=== PATIENT | male | born 1960 | race Caucasian/White ===

== ENCOUNTER 2020-01-26 16:28 | Emergency (ER) | payer MEDICAID, SELFPAY ==
[2020-01-26] VITALS (7 sets, daily range): BP systolic 124–152; BP diastolic 64–93; PULSE 64–94; RESP 16–22; TEMP 36.3; O2SAT 95–98; BMI 30.4
--- NOTE | 2020-01-26 16:34 | ECG_ITS ---
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 Measurements Intervals [place] Rate: 92 P: 55 [place]: 203 QRS: -12 QRSD: 98 T: 32 QT: 346 QTc: 429 Interpretive Statements SINUS RHYTHM No previous ECG available for comparison Electronically Signed On 01-26-2020 17:41:36 CDT by Lana Duran M.D. [id number] f
--- NOTE | 2020-01-26 16:46 | XRR_ITS ---
PROCEDURE INFORMATION: Exam: XR Chest, 1 View Exam date and time: 01/26/2020 5:12 PM Age: 59 years old Clinical indication: Chest pain; Type not specified TECHNIQUE: Imaging protocol: XR of the chest Views: 1 view. COMPARISON: No relevant prior studies available. FINDINGS: Lungs: Unremarkable. No consolidation. Pleural space: Unremarkable. No pleural effusion. No pneumothorax. Heart/Mediastinum: Unremarkable. No cardiomegaly. Bones/joints: Unremarkable. XR/XR chest 1V portable [id number] IMPRESSION: No acute findings.
[2020-01-26 16:56] LABS: Basophils # 0.1 10^3/uL (0.0-0.1); Basophils % 0.9 %; Eosinophils # 0.2 10^3/uL (0.0-0.8); Eosinophils % 2.5 %; Hematocrit 42.7 % (42.0-52.0); Hemoglobin 14.1 g/dL (11.7-16.6); Lymphocytes # 1.5 10^3/uL (0.8-4.8); Lymphocytes % 18.4 %; Mean Corpuscular Hemoglobin 29.2 pg (28.0-34.0); Mean Corpuscular Volume 88.4 fL (80-94); Mean Platelet Volume 9.1 fL (7.4-10.4); Monocytes # 0.7 10^3/uL (0.2-0.9); Monocytes % 9.1 %; Neutrophils # 5.59 10^3/uL (1.8-7.7); Neutrophils % 68.6 %; Nucleated Red Blood Cells % 0 %; Platelet Count 233 10^3/cmm (130-400); Red Blood Count 4.83 10^6/uL (4.1-5.3); Red Cell Distribution Width 12.7 % (12.1-15.1); White Blood Count 8.1 10^3/uL (4.0-10.0)
[2020-01-26 17:22] LABS: Alanine Aminotransferase 23 U/L (0-41); Albumin Level 4.4 g/dL (3.5-5.2); Alkaline Phosphatase 85 IU/L (40-130); Anion Gap 15.3 (5-19); Aspartate Amino Transferase 19 U/L (0-40); Blood Urea Nitrogen 11 mg/dL (6-20); Calcium 9.6 mg/dL (8.5-10.5); Carbon Dioxide 23 mmol/L (22-29); Chloride 104 mmol/L (98-107); Creatinine Clr Calc Pharmacy 99.0456; Globulin 2.4 g/dL (1.3-4.6); Glucose 120 mg/dL (65-115); Lipase 57 U/L (13-60); Osmolality Calculated 287 mOsm/kg (285-295); Potassium 4.3 mmol/L (3.5-5.1); Sodium 138 mmol/L (136-145); Total Bilirubin 0.3 mg/dL (0.15-1.2); Total Protein 6.8 g/dL (6.6-8.7)
[2020-01-26 17:23] LABS: Troponin(5th) Baseline 7 ng/L (0-15)
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
--- NOTE | 2020-01-26 18:34 | ECG_ITS ---
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 Measurements Intervals [place] Rate: 74 P: 65 [place]: 203 QRS: 112 QRSD: 96 T: 23 QT: 384 QTc: 426 Interpretive Statements SINUS RHYTHM POSSIBLE RIGHT VENTRICULAR HYPERTROPHY [SOME/ALL OF: PROMINENT R IN V1, LATE TRANSITION, RAD, JAYY, SSS] Compared to ECG 01/26/2020 16:31:58 No significant changes Electronically Signed On 01-27-2020 18:37:43 CDT by Lana Duran M.D. [email or web address]/[id number]
[2020-01-26] MEDS: nitroglycerin 1 gm/inch oint Pkt 1 INCH TOPICAL (19:04)
[2020-01-26 19:20] LABS: D Dimer <= 0.27 ug/mIFEU (0-0.59)
== END 2020-01-26 21:57 ==
PROVIDERS: Emergency Provider Emergency Medicine
DX: R07.9 Chest pain, unspecified (principal); Z79.82 Long term (current) use of aspirin
CPT/HCPCS: 12345; 71045; 80053; 83690; 84484; 85025; 85378; 85610; 93005; 99283; 99284

== ENCOUNTER 2020-01-30 17:20 | Observation (INO) | payer MEDICAID, SELFPAY ==
[2020-01-30] VITALS (8 sets, daily range): BP systolic 125–166; BP diastolic 58–91; PULSE 55–93; RESP 18–20; TEMP 36.5–37; O2SAT 96–99; BMI 30.4
[2020-01-30 18:06] LABS: Basophils # 0.1 10^3/uL (0.0-0.1); Basophils % 0.8 %; Eosinophils # 0.2 10^3/uL (0.0-0.8); Eosinophils % 2.1 %; Hematocrit 45.2 % (42.0-52.0); Hemoglobin 15.1 g/dL (11.7-16.6); Lymphocytes # 1.5 10^3/uL (0.8-4.8); Lymphocytes % 21.1 %; Mean Corpuscular HGB Conc 33.4 g/dL (30.0-36.0); Mean Corpuscular Hemoglobin 29.4 pg (28.0-34.0); Mean Corpuscular Volume 88.1 fL (80-94); Mean Platelet Volume 8.9 fL (7.4-10.4); Monocytes # 0.6 10^3/uL (0.2-0.9); Monocytes % 8.3 %; Neutrophils # 4.86 10^3/uL (1.8-7.7); Neutrophils % 67.4 %; Nucleated Red Blood Cells % 0 %; Platelet Count 261 10^3/cmm (130-400); Red Blood Count 5.13 10^6/uL (4.1-5.3); Red Cell Distribution Width 12.6 % (12.1-15.1); White Blood Count 7.2 10^3/uL (4.0-10.0)
[2020-01-30 18:29] LABS: Alanine Aminotransferase 23 U/L (0-41); Albumin Level 4.8 g/dL (3.5-5.2); Alkaline Phosphatase 91 IU/L (40-130); Anion Gap 18.2 (5-19); Aspartate Amino Transferase 22 U/L (0-40); Blood Urea Nitrogen 12 mg/dL (6-20); Calcium 10.2 mg/dL (8.5-10.5); Carbon Dioxide 22 mmol/L (22-29); Chloride 100 mmol/L (98-107); Creatinine Clr Calc Pharmacy 89.1411; Globulin 2.6 g/dL (1.3-4.6); Glucose 162 mg/dL (65-115); Lipase 36 U/L (13-60); Osmolality Calculated 285 mOsm/kg (285-295); Potassium 4.2 mmol/L (3.5-5.1); Sodium 136 mmol/L (136-145); Total Bilirubin 0.4 mg/dL (0.15-1.2); Total Protein 7.4 g/dL (6.6-8.7)
--- NOTE | 2020-01-30 18:54 | CTR_ITS ---
PROCEDURE INFORMATION: Exam: CT Abdomen And Pelvis With Contrast Exam date and time: 01/30/2020 7:10 PM Age: 59 years old Clinical indication: Nausea and vomiting; Abdominal pain; Periumbilical; Prior surgery; Surgery type: Hernia, testicle; Patient HX: Central protruding mass; Additional info: Abdominal pain, fever TECHNIQUE: Imaging protocol: Computed tomography of the abdomen and pelvis with intravenous contrast. Radiation optimization: All CT scans at this facility use at least one of these dose optimization techniques: automated exposure control; mA and/or kV adjustment per patient size (includes targeted exams where dose is matched to clinical indication); or iterative reconstruction. Contrast material: OMNI 300; Contrast volume: 95 ml; Contrast route: INTRAVENOUS (IV); COMPARISON: No relevant prior studies available. RADIATION DOSE METRICS: Total DLP (mGy-cm): 860.56 FINDINGS: Liver: Normal. No mass. Gallbladder and bile ducts: Normal. No calcified stones. No ductal dilation. Pancreas: Normal. No ductal dilation. Spleen: Normal. No splenomegaly. Adrenals: Normal. No mass. Kidneys and ureters: Normal. No hydronephrosis. Stomach and bowel: The 1.9 cm duodenal diverticulum without inflammation. Scattered stool in the colon without obstructive or inflammatory changes. There are a few noninflamed distal colonic diverticula. Appendix: The appendix is normal. Intraperitoneal space: Unremarkable. No free air. No significant fluid collection. Vasculature: Unremarkable. No abdominal aortic aneurysm. Lymph nodes: There are a few borderline enlarged retroperitoneal lymph nodes which are most likely reactive. Urinary bladder: The urinary bladder is enlarged up to 12 cm but without wall thickening or stones. Reproductive: Unremarkable as visualized. Bones/joints: Chronic degenerative disc disease at L5-S1. Mild lower lumbar disc bulges without significant stenosis. Soft tissues: 2.2 cm umbilical hernia consist of fatty tissue only. No inflammation. CT/CT abdomen pelvis w con* [id number] IMPRESSION: 1. No acute abdominopelvic findings. 2. Small fatty umbilical hernia without bowel involvement. 3. Chronic or incidental findings as described. Radiation Dose CTDIVOL = (mGy): DLP = 860.56 (mGy-cm)
--- NOTE | 2020-01-30 18:54 | W.ED.ABDPA2 ---
HPI - Abdominal Pain General: Chief Complaint: Abdominal Pain Stated Complaint: VOMITING BLOOD Time Seen by Provider: 01/30/20 18:46 History of Present Illness: HPI narrative: This patient is a 59-year-old male who presents today with abdominal pain. He said it is his pancreatitis flaring up. He indicates his epigastric area as the source of the pain. He has had pancreatitis several times. He is not sure what the cause of it was. He said they tried to take his gallbladder out once but it was too big. He was seen here few days ago with chest pain. That resolved and then this started about 2 days ago. He has had vomiting blood and black tarry stools for 2 days. MD elicited complaint: abdominal pain Pertinent past history: myocardial infarction and other (Pancreatitis) Onset (ago): day(s) (2) Pain Consistency: constant Location: Epigastric Severity: severe Quality: cramping, stabbing and sharp Radiation: none Migration to: no migration Exacerbating factors: eating and movement Relieving factors: nothing Associated Symptoms: Reports fever(s), hematemesis, melena, nausea and vomiting; Denies chills Review of Systems General: Reports: 10 or more systems reviewed and unremarkable except in HPI and below Const: Reports: fever(s); Denies: chills, fatigue or malaise Eyes: Denies: change in vision ENMT: Denies: odynophagia Card: Denies: chest pain or swelling of feet/ankles Resp: Denies: dyspnea, productive cough or non-productive cough GI: Reports: abdominal pain, nausea, vomiting, hematemesis and melena : Denies: flank pain Musc: Denies: neck pain or back pain Skin/Breast: Denies: rash Neuro: Denies: headache(s), numbness in extremities or weakness in extremities Robin/Lymph: Denies: easy bruising or easy bleeding Physical Exam Const: COMMON NORMALS: patient oriented x3, no limitations and alert GENERAL APPEARANCE: cooperative HENMT: HEAD & SCALP: normal to inspection FACE & SINUS: normal facial exam Eye: GENERAL EYE: appearance normal, both eyes and all related structures Neck/C-Spine: COMMON NORMALS: supple, no meningeal signs and no JVD Chest: COMMONS NORMALS: normal inspection of the chest Resp: COMMON NORMALS: normal respiratory effort, No use of accessory muscles and clear to auscultation bilaterally AUSCULTATION: clear to auscultation bilaterally Cardio: COMMON NORMALS: no JVD, regular rate, regular rhythm and No murmurs present (Cardio) RATE: regular rate RHYTHM: regular rhythm GI: PALPATION: Yes Tenderness to palpation present (GI) (Epigastric) and Yes Guarding due to palpation present (GI) Back/Pelvis: COMMON NORMALS: thoracic and lumbar spine normal to inspection Extremity: COMMON NORMALS: normal to inspection Neuro: COMMON NORMALS: patient oriented x3, moves all extremities, no focal motor deficits and no sensory deficits noted SENSORIUM/ORIENTATION: Yes alert MENINGEAL SIGNS: Yes no meningeal signs Psych: COMMON NORMALS: mental status grossly normal, cooperative and normal affect Skin: COMMON NORMALS: no rashes or lesions noted and turgor normal GENERAL SKIN EXAM: no rashes or lesions noted and turgor normal Course ED course: Patient reportedly was vomiting blood and having black tarry stools prior to coming. The officer with him apparently witnessed the blood in his emesis. He has blood on his shirt. He did not have any vomiting or bowel movements while in the department. He did continue to complain of epigastric pain. His blood counts are fine and he had a normal CT scan. He will be admitted for observation overnight. He may have an endoscopy in the morning if that is felt to be appropriate. Vital Signs: Vital signs: Vital Signs Temperature 97.9 F 01/30/20 17:25 Pulse Rate 72 01/30/20 19:08 Respiratory Rate 18 01/30/20 19:21 Blood Pressure 125/64 01/30/20 19:08 Pulse Oximetry 98 01/30/20 19:21 MDM - Abdominal Pain Lab Data: Labs: Lab Results 01/30/20 01/30/20 01/30/20 Range/Units 17:48 17:48 20:30 WBC 7.2 (4.0-10.0) 10^3/ uL RBC 5.13 (4.1-5.3) 10^6/u L Hgb 15.1 (11.7-16.6) g/dL Hct 45.2 (42.0-52.0) % MCV 88.1 (80-94) fL MCH 29.4 (28.0-34.0) pg MCHC 33.4 (30.0-36.0) g/dL RDW 12.6 (12.1-15.1) % Plt Count 261 (130-400) 10^3/c mm MPV 8.9 (7.4-10.4) fL Neut % (Auto) 67.4 % Lymph % (Auto) 21.1 % [place] % (Auto) 8.3 % Eos % (Auto) 2.1 % Baso % (Auto) 0.8 % Neut # (Auto) 4.86 (1.8-7.7) 10^3/u L Lymph # (Auto) 1.5 (0.8-4.8) 10^3/u L [place] # (Auto) 0.6 (0.2-0.9) 10^3/u L Eos # (Auto) 0.2 (0.0-0.8) 10^3/u L Baso # (Auto) 0.1 (0.0-0.1) 10^3/u L Nucleated RBC % (a uto) 0 % Nucleated RBCs # 0.0 /100WBC Sodium 136 (136-145) mmol/L Potassium 4.2 (3.5-5.1) mmol/L Chloride 100 (98-107) mmol/L Carbon Dioxide 22 (22-29) mmol/L Anion Gap 18.2 (5-19) BUN 12 (6-20) mg/dL Creatinine 1.0 (0.7-1.2) mg/dL GFR Calculation 77.0 L (90-130) mL/min Glucose 162 H (65-115) mg/dL Calculated Osmolal ity 285 (285-295) mOsm/k g Calcium 10.2 (8.5-10.5) mg/dL Total Bilirubin 0.4 (0.15-1.2) mg/dL AST 22 (0-40) U/L ALT 23 (0-41) U/L Alkaline Phosphata se 91 (40-130) IU/L Total Protein 7.4 (6.6-8.7) g/dL Albumin 4.8 (3.5-5.2) g/dL Globulin 2.6 (1.3-4.6) g/dL Lipase 36 (13-60) U/L Urine Color Yellow (Yellow) Urine Appearance Clear (CLEAR) Urine pH 7 (5-7) Ur Specific Gravit y 1.005 (1.005-1.030) Urine Protein Neg (Negative) Urine Glucose (UA) Norm (Normal) Urine Ketones Negative (Negative) Urine Blood 2+ H (Negative) Urine Nitrate Negative (Negative) Urine Bilirubin Neg (Negative) Prot Sulfosalicyli c Acd Negative (Negative) Urine Urobilinogen Norm (Negative) mg/dL Ur Leukocyte Madhavi ase Negative (Negative) Urine RBC 0-4 H (0-2) /hpf Urine WBC None (0-5) /hpf Ur Squamous Epith Cells 0-4 H (0-5) /hpf Amorphous Sediment Not Reportable Urine Bacteria Trace (NONE) /hpf Discharge Plan Discharge Prescriptions: No Action omeprazole 40 mg capsule,delayed release(DR/EC) 40 mg PO DAILY 28 Days Qty: 30 RF: 0 Pepper Aspirin 325 mg tablet 325 mg PO DAILY Qty: 30 RF: 0 Coding Level of Care Code ED Scientific Recruiter for Yrisg Fwd Exam Comprehensive
[2020-01-30] MEDS: ondansetron 2 mg/ML SDV 2 mL 4 MG IVP (19:15)
[2020-01-30] MEDS: sodium chloride 0.9% 1,000 ML 999 ML IV (19:15)
[2020-01-30] MEDS: morphine 4 mg/mL SDV 1 mL IVP ×2 (19:21→22:13)
[2020-01-30] MEDS: iohexol 300 mg/mL 100 mL Btl IV (19:46)
[2020-01-30] MEDS: pantoprazole 40 mg SDV 80 MG IVP (20:32)
[2020-01-30 20:59] LABS: Add Urine Culture? No; Add Urine Microscopic? YES; Bacteria Urine TRACE /hpf; Bilirubin Urine Neg (Negative); Blood Urine 2+ (Negative); Glucose Urine UA Norm (Normal); Ketones Urine Negative (Negative); Leukocyte Esterase Urine Negative (Negative); Nitrate Urine Negative (Negative); Protein Urine Neg (Negative); RBC Urine 0-4 /hpf (0-2); Specific Gravity, Urine 1.005 (1.005-1.030); Squamous Epithelial Cell Urine 0-4 /hpf (0-5); Sulfosalicylic Acid Urine Negative (Negative); Urine Appearance Clear (CLEAR); Urine Color Yellow (Yellow); Urobilinogen Urine Norm (Negative); pH Urine 7 (5-7)
--- NOTE | 2020-01-30 21:26 | PM.HP ---
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 Patient is stating that his symptoms started 3 days ago. He has been experiencing intractable nausea and vomiting, initially his vomitus contained food particles, after 24 hours he started noticing dark-colored stools and then coffee-ground emesis. This morning he tried to eat oatmeal but was not able to keep anything down, he was brought to the hospital for further evaluation. He is denying fever, headache, chest pain, shortness of breath, dysuria, diarrhea, he is able to pass flatus, his last bowel movement was today. He is endorsing to smoking 1 pack of cigarettes in 3 to 4 days, drinks beer occasionally, methamphetamine abuser. Is denying previous history of liver cirrhosis, variceal bleed, portal hypertension, hepatitis. Diagnosis in the ER revealed normal hemodynamics, normal hemoglobin, he had one episode of coffee-ground emesis while sitting in the ER waiting room. He has seen multiple doses of opioids, CT abdomen revealed umbilical hernia without acute pathology noticed. No signs of liver cirrhosis. He has been given Protonix 80 mg. Review of Systems Const: Reports: body aches and fatigue; Denies: fever(s) or chills Eyes: Denies: change in vision ENMT: Denies: throat pain Card: Denies: chest pain Resp: Denies: dyspnea GI: Reports: abdominal pain, nausea, vomiting and melena; Denies: diarrhea, constipation or hematochezia : Denies: flank pain or urinary frequency Musc: Denies: neck pain Skin/Breast: Denies: rash Neuro: Denies: headache(s) Psych: Denies: anxiety Endo: Denies: polyuria Robin/Lymph: Denies: easy bruising All/Imm: Denies: urticaria Medications/Allergies Home Medications Medication Instructions Recorded Confirmed Last Taken Type aspirin [Pepper Aspirin] 325 mg PO DAILY #30 tab 01/26/20 Unknown Rx omeprazole 40 mg PO DAILY 28 Days #30 cap 01/26/20 Unknown Rx Allergies Allergy/AdvReac Type Severity Reaction Status Date / Time No Known Allergies Allergy Verified 01/30/20 17:28 PFSH Acute PFSH: Medical History (Updated 01/30/20 @ 22:16 by Akbar Darby MD) Duodenal diverticulum Hypertension Methamphetamine abuse Recurrent pancreatitis Umbilical hernia Surgical History (Updated 01/30/20 @ 22:16 by Akbar Darby MD) History of orchiectomy Testicular tumor status post orchiectomy Family History (Updated 01/30/20 @ 22:16 by Akbar Darby MD) Father Cancer Pancreatic cancer Social History (Updated 01/30/20 @ 22:16 by Akbar Darby MD) Smoking and tobacco status: heavy tobacco smoker cigarettes [ Other cigarette details: 1 pack/day ] Alcohol intake: current Alcohol type: beer Substance/Drug Use: current Substance/Drug use type: Methamphetamine Housing: Other Details: Incarcerated Vitals/I&O/Wt Last Vital Signs Temp 97.9 F 01/30/20 17:25 Pulse 72 01/30/20 19:08 Resp 18 01/30/20 19:21 BP 125/64 01/30/20 19:08 Pulse Ox 98 01/30/20 19:21 Weight last 48 hrs Weight 90.718 kg Physical Exam Narrative: EXAM NARRATIVE: Patient was laying in left lateral position in distress because of epigastric pain Normal hemodynamics Cooperative and pleasant to communicate Does not look dehydrated EOMI, PERRLA Multiple skin tattoos Abdomen soft nontender, distended, umbilical hernia, no signs of peritonitis Deep palpation tenderness in mid epigastric region, S1, S2 no tachycardia heart failure Lungs are clear to auscultation Dorsally no edema gangrene ulcer Appropriate mood and affect No neurological deficit, awake alert oriented x3 GCS 15 At the bedside his shirt had coffee-ground emesis stains Data : 01/30/20 17:48 01/30/20 17:48 Micro: Microbiology 01/30/20 17:48 Blood Culture - Preliminary Blood SPECIMEN COLLECTED A&P Assessment and plan (1) Upper GI bleed: Status: Acute (2) Coffee ground emesis: Status: Acute (3) Black tarry stools: Status: Acute Additional A&P Information Coffee-ground emesis with black tarry stool Intractable nausea and vomiting for last 72 hours with subsequent conversion to coffee-ground emesis My differential would include Mellisa-Whiting tear, no history of liver cirrhosis or hepatitis Liver enzymes are normal, He has been taking aspirin 325 mg, does not have any history of coronary disease I would advocate for discontinuing aspirin Continue tonics 40 IV twice daily, n.p.o., D5 half-normal saline resuscitation, Dr. Kelly has been notified for diagnostic endoscopy in the morning Umbilical hernia: Fat content, no signs of incarceration, no signs of peritonitis Conservative management Essential hypertension: Is not on any antihypertensive currently normotensive, monitor blood pressure for now Full code N.p.o. DVT prophylaxis SCDs, because of hematemesis I would avoid anticoagulating agent Attestations Medical Necessity Statement*: Anticipating discharge in less than 48 hours, he needs diagnostic endoscopy and fluid resuscitation for intractable nausea vomiting Time Spent in Patient Care: (>than 50% of time spent in counselling and/or direct pt care on unit). 45mins Coding Level of Care Code Acute Galvanizing Pot Runner for Viktor Avila Diagnoses Upper GI bleed K92.2 Coffee ground emesis K92.0 Black tarry stools K92.1
[2020-01-30 23:42] LABS: Hematocrit 41.5 % (42.0-52.0); Hemoglobin 13.8 g/dL (11.7-16.6)
[2020-01-31] VITALS (8 sets, daily range): BP systolic 142–162; BP diastolic 76–91; PULSE 50–59; RESP 14–18; TEMP 36.4–37; O2SAT 96–98
[2020-01-31] MEDS: HYDROmorphone 1 mg/mL INJ 1 mL 2 MG IVP ×2 (00:49→22:34)
[2020-01-31] MEDS: dextrose 5%-sod chloride 0.45% 1,000 ML 75 ML IV (00:51)
[2020-01-31] MEDS: lidocaine 2% viscous 15 ML, aluminum-mag hydrox-simethicon 30 ML, sucralfate oral liq 1 GM PO (00:51)
[2020-01-31 03:10] LABS: Basophils % 0.7 %; Eosinophils # 0.2 10^3/uL (0.0-0.8); Eosinophils % 2.6 %; Hematocrit 40.3 % (42.0-52.0); Hemoglobin 13.3 g/dL (11.7-16.6); Lymphocytes # 1.3 10^3/uL (0.8-4.8); Lymphocytes % 21.6 %; Mean Corpuscular Hemoglobin 29.8 pg (28.0-34.0); Mean Corpuscular Volume 90.4 fL (80-94); Mean Platelet Volume 8.9 fL (7.4-10.4); Monocytes # 0.6 10^3/uL (0.2-0.9); Monocytes % 10.1 %; Neutrophils # 3.78 10^3/uL (1.8-7.7); Neutrophils % 64.7 %; Nucleated Red Blood Cells % 0 %; Platelet Count 204 10^3/cmm (130-400); Red Blood Count 4.46 10^6/uL (4.1-5.3); Red Cell Distribution Width 12.7 % (12.1-15.1); White Blood Count 5.8 10^3/uL (4.0-10.0)
[2020-01-31 03:36] LABS: Alanine Aminotransferase 20 U/L (0-41); Albumin Level 4.1 g/dL (3.5-5.2); Alkaline Phosphatase 77 IU/L (40-130); Anion Gap 14.2 (5-19); Aspartate Amino Transferase 17 U/L (0-40); Blood Urea Nitrogen 11 mg/dL (6-20); Calcium 8.8 mg/dL (8.5-10.5); Carbon Dioxide 24 mmol/L (22-29); Chloride 105 mmol/L (98-107); Creatinine Clr Calc Pharmacy 89.1411; Globulin 2.8 g/dL (1.3-4.6); Glucose 135 mg/dL (65-115); Osmolality Calculated 289 mOsm/kg (285-295); Potassium 4.2 mmol/L (3.5-5.1); Sodium 139 mmol/L (136-145); Total Bilirubin 0.2 mg/dL (0.15-1.2); Total Protein 6.9 g/dL (6.6-8.7)
--- NOTE | 2020-01-31 05:48 | P.CONIM_ITS ---
Providers/Reason For Consult Consulting Physican/Specialty*: General Surgery Jake Kelly MD Reason for Consult*: Hematemesis, melena. Attending Physician: Akbar Darby MD History of Present Illness History of Present Illness Geo Parson is a 59 year old male who has a several day history of recurrent episodes of nausea and vomiting. He is currently incarcerated but only has 5 or 6 days remaining in his sentence. He says his problems actually started on Tuesday (4 days ago) with some left-sided chest pain. The following day he had a bowel movement and he said it was black in color. He has not had a bowel movement since. He then developed some abdominal pain in the low epigastrium and had multiple episodes of vomiting. He said eventually he saw some red material that he thought was blood. He has not vomited since yesterday now. He has no previous diagnoses of peptic ulcer disease. He takes a full sized aspirin every day but does not take any other NSAIDs. The patient reports a history of recurrent pancreatitis; he says the first episode was from my gallbladder (which was never removed). Subsequent episodes were felt to be from ethanol use. He says he has had 4 episodes in the past year. All of this was initially diagnosed and treated in [place]. Review of Systems General: Reports: 10 or more systems reviewed and unremarkable except in HPI and below Const: Reports: body aches GI: Reports: abdominal pain, nausea, vomiting, hematemesis and melena (Last 3 days ago) Meds/Allergies Home Medications and Allergies Home Medications Medication Instructions Recorded Confirmed Last Taken Type aspirin [Pepper Aspirin] 325 mg PO DAILY #30 tab 01/26/20 Unknown Rx omeprazole 40 mg PO DAILY 28 Days #30 cap 01/26/20 Unknown Rx Allergies Allergy/AdvReac Type Severity Reaction Status Date / Time No Known Allergies Allergy Verified 01/30/20 17:28 Current Medications Current Medications Generic Name Dose Route Start Last Admin Trade Name Freq PRN Reason Stop Dose Admin Dextrose/Sodium Chloride 1,000 mls @ 75 mls/hr 01/30/20 23:25 01/31/20 00:51 Dextrose 5%-Sod Chloride 0.45% IV 75 mls/hr .[id number] NEELIMA Administration PFSH Acute PFSH: Medical History (Updated 01/31/20 @ 06:10 by Jake Kelly MD) Coronary artery disease History of [place] Duodenal diverticulum History of CVA (cerebrovascular accident) Slight residual right-sided facial droop at times Hypertension Methamphetamine abuse Recurrent pancreatitis Recurrent umbilical hernia Surgical History (Updated 01/31/20 @ 06:04 by Jake Kelly MD) History of orchiectomy 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 History of right inguinal hernia repair History of umbilical hernia repair Family History Father Cancer Pancreatic cancer Social History Smoking and tobacco status: heavy tobacco smoker cigarettes [ Other cigarette details: 1 pack/day ] Alcohol intake: current Alcohol type: beer Substance/Drug Use: current Substance/Drug use type: Methamphetamine Housing: Other Details: Incarcerated Vitals/I&O/Wt Last Vital Signs Temp 97.5 F L 01/31/20 03:47 Pulse 52 L 01/31/20 03:47 Resp 14 01/31/20 03:47 BP 142/84 01/31/20 03:47 Pulse Ox 98 01/31/20 03:47 01/30/20 01/30/20 01/31/20 14:59 22:59 06:59 Intake Total 0 / 0 Balance 0 / 0 Weight last 48 hrs Weight 200 lb Physical Exam Narrative: EXAM NARRATIVE: The patient was encountered in his hospital room. He is shackled to his bed and there is a equipment installation professional's deputy present in the room. The patient does not appear to be in any distress. His pupils are equal. No carotid bruits are heard. The lungs are clear anteriorly. The heart is regular. The abdomen is mildly obese. There is a well-healed transverse i ncision underneath the umbilicus but there is a fat-containing umbilical hernia in the base of the umbilicus which is mildly tender. The patient has some mild to moderate tenderness in the epigastrium to palpation which does not always seem to be reproducible. No obvious masses are palpated. The extremities reveal no edema. Neurologically the patient is grossly intact. Data Labs: Other Labs: Laboratory Tests 01/30/20 01/31/20 17:48 03:00 Total Bilirubin 0.2 AST 17 ALT 20 Alkaline Phosphata se 77 Lipase 36 Micro: Micro: Microbiology 01/30/20 17:48 Blood Culture - Pr eliminary Blood SPECIMEN [facility] Imaging^: CT Abd/Pel: Radiologist's impression: CT abdomen/pelvis 01/30/2020 IMPRESSION: 1. No acute abdominopelvic findings. 2. Small fatty umbilical hernia without bowel involvement. A&P Assessment and plan (1) Hematemesis: The patient has not had any vomiting since yesterday. It sounds like he may have had a little bit of hematemesis after multiple episodes of nausea and vomiting. Hemoglobin appears stable. We discussed EGDs in some detail including the endoscopic risks. The patient would like to proceed with an EGD. Status: Acute (2) Black tarry stools: The patient has not had a bowel movement for 3 days. Status: Acute (3) Recurrent umbilical hernia: This is recurrent; it sounds like it is asymptomatic for the most part. Status: Acute (4) Epigastric pain: The patient does have some tenderness on exam, but is not always reproducible. There are no imaging or laboratory studies that would indicate the patient has pancreatitis at this time. Status: Acute Consult Attestations Medical Necessity Statement: See admitting service's notation. Coding Level of Care Code Acute Executive Vice President And Chief Financial Officer for [facility] Fwd Diagnoses Hematemesis K92.0 Black tarry stools K92.1 Recurrent umbilical hernia K42.9 Epigastric pain R10.13
[2020-01-31] MEDS: pantoprazole 40 mg SDV IVP (07:59)
[2020-01-31] MEDS: morphine 4 mg/mL SDV 1 mL 2 MG IVP (07:59)
[2020-01-31] MEDS: ondansetron 2 mg/ML SDV 2 mL 4 MG IVP (08:09)
[2020-01-31] MEDS: ketorolac 30 mg/mL INJ 15 MG IVP (11:13)
[2020-01-31] MEDS: sodium chloride 0.9% 1,000 ML 30 ML IV (12:24)
--- NOTE | 2020-01-31 12:29 | P.ANESASSM_ITS ---
Pre-Anesthetic Assessment Pre-Anesthetic Assessment: Height/Weight: Height 1.73 m Weight 90.718 kg Temp Pulse Resp BP Pulse Ox 98.6 F 53 L 18 158/76 98 01/31/20 12:03 01/31/20 12:03 01/31/20 12:03 01/31/20 12:03 01/31/20 12:03 Preop Diagnosis: Gi bleed Proposed Procedure: Operation Date: 01/31/20 10:15 Proposed Procedures p EGD W/bx(Not Applicable) - Jake Kelly MD Familial anesthetic complications: none Was Beta Piotr taken within 24 hours: N/A Last intake: Intake Last Liquid Date 01/30/20 Last Liquid Time 16:00 Last Solid Date 01/29/20 Last Solid Time 08:00 Social: Social History: Tobacco Comment: hx alcohol, meth abuse Exam: Pre-Anes Outpt Exam: alert, oriented x 3, clear to auscultation bilaterally and regular rate & rhythm Airway: Cervical ROM: WNL MP: 3 Dentition: False GI: Comments: recurrent pancreatitis, no nausea/vomiting today Anesthetic Plan: ASA status: 2 Anesthesia: MAC Meds/Allergies Current Medications: Current Medications Generic Name Dose Route Start Last Admin Trade Name Freq PRN Reason Stop Dose Admin Dextrose/Sodium Ch loride 1,000 mls @ 125 m ls/hr 01/30/20 23:25 01/31/20 00:51 Dextrose 5%-Sod Chloride 0.45% IV 75 mls/hr .Q8H NEELIMA Administration Sodium Chloride 1,000 mls @ 30 ml s/hr 01/31/20 12:00 01/31/20 12:24 Sodium Chloride 0.9% IV 02/01/20 11:59 30 mls/hr .Q24H NEELIMA Administration Ketorolac Trometha mine 15 mg 01/31/20 10:51 01/31/20 11:13 Toradol IVP 02/05/20 10:50 15 mg Q8H PRN Administration MODERATE PAIN Morphine Sulfate 2 mg 01/30/20 23:25 01/31/20 07:59 Morphine IVP 2 mg Q4H PRN Administration abd pain Ondansetron HCl 4 mg 01/30/20 23:25 01/31/20 08:09 Zofran IVP 4 mg Q6H PRN Administration NAUSEA AND VOMITI NG Pantoprazole Sodiu m 40 mg 01/31/20 09:00 01/31/20 07:59 Protonix IVP 40 mg BID NELEIMA Administration PFSH Anesthesia PFSH: Medical History (Updated 01/31/20 @ 06:10 by Jake Kelly MD) Coronary artery disease History of [place] Duodenal diverticulum History of CVA (cerebrovascular accident) Slight residual right-sided facial droop at times Hypertension Methamphetamine abuse Recurrent pancreatitis Recurrent umbilical hernia Surgical History (Updated 01/31/20 @ 06:04 by Jake Kelly MD) History of orchiectomy 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 History of right inguinal hernia repair History of umbilical hernia repair Family History Father Cancer Pancreatic cancer Social History Smoking and tobacco status: heavy tobacco smoker cigarettes [ Other cigarette details: 1 pack/day ] Alcohol intake: current Alcohol type: beer Substance/Drug Use: current Substance/Drug use type: Methamphetamine Housing: Other Details: Incarcerated Data Anesthesia CBC & Chem 7: 01/31/20 03:00 01/31/20 03:00 Other Labs: Laboratory Results - last 48 hr 01/30/20 01/30/20 01/30/20 17:48 17:48 20:30 WBC 7.2 RBC 5.13 Hgb 15.1 Hct 45.2 MCV 88.1 MCH 29.4 MCHC 33.4 RDW 12.6 Plt Count 261 MPV 8.9 Neut % (Auto) 67.4 Lymph % (Auto) 21.1 Jackson % (Auto) 8.3 Eos % (Auto) 2.1 Baso % (Auto) 0.8 Neut # (Auto) 4.86 Lymph # (Auto) 1.5 Jackson # (Auto) 0.6 Eos # (Auto) 0.2 Baso # (Auto) 0.1 Nucleated RBC % (auto) 0 Nucleated RBCs # 0.0 Sodium 136 Potassium 4.2 Chloride 100 Carbon Dioxide 22 Anion Gap 18.2 BUN 12 Creatinine 1.0 GFR Calculation 77.0 L Glucose 162 H Calculated Osmolality 285 Calcium 10.2 Total Bilirubin 0.4 AST 22 ALT 23 Alkaline Phosphatase 91 Total Protein 7.4 Albumin 4.8 Globulin 2.6 Lipase 36 Urine Color Yellow Urine Appearance Clear Urine pH 7 Ur Specific [place] 1.005 Urine Protein Neg Urine Glucose (UA) Norm Urine Ketones Negative Urine Blood 2+ H Urine Nitrate Negative Urine Bilirubin Neg Prot Sulfosalicylic Acd Negative Urine Urobilinogen Norm Ur Leukocyte Esterase Negative Urine RBC 0-4 H Urine WBC None Ur Squamous Epith Cells 0-4 H Amorphous Sediment Not Reportable Urine Bacteria Trace 01/30/20 01/31/20 01/31/20 23:36 03:00 03:00 WBC 5.8 RBC 4.46 Hgb 13.8 13.3 Hct 41.5 L 40.3 L MCV 90.4 MCH 29.8 MCHC 33.0 RDW 12.7 Plt Count 204 MPV 8.9 Neut % (Auto) 64.7 Lymph % (Auto) 21.6 Jackson % (Auto) 10.1 Eos % (Auto) 2.6 Baso % (Auto) 0.7 Neut # (Auto) 3.78 Lymph # (Auto) 1.3 Jackson # (Auto) 0.6 Eos # (Auto) 0.2 Baso # (Auto) 0.0 Nucleated RBC % (auto) 0 Nucleated RBCs # 0.0 Sodium 139 Potassium 4.2 Chloride 105 Carbon Dioxide 24 Anion Gap 14.2 BUN 11 Creatinine 1.0 GFR Calculation 77.0 L Glucose 135 H Calculated Osmolality 289 Calcium 8.8 Total Bilirubin 0.2 AST 17 ALT 20 Alkaline Phosphatase 77 Total Protein 6.9 Albumin 4.1 Globulin 2.8 Lipase Urine Color Urine Appearance Urine pH Ur Specific [place] Urine Protein Urine Glucose (UA) Urine Ketones Urine Blood Urine Nitrate Urine Bilirubin Prot Sulfosalicylic Acd Urine Urobilinogen Ur Leukocyte Esterase Urine RBC Urine WBC Ur Squamous Epith Cells Amorphous Sediment Urine Bacteria Micro: Microbiology 01/30/20 17:48 Blood Culture - Preliminary Blood SPECIMEN COLLECTED Cardiac Studies: No Data to Display
--- NOTE | 2020-01-31 13:50 | PM.PACU ---
PACU note Post-Anesthesia Exam: awake and vital signs stable Disposition: back to floor
--- NOTE | 2020-01-31 14:12 | P.PN_ITS ---
Subjective Subjective: Interval history: Overnight labs and H&P reviewed. Plan for upper GI endoscopy this afternoon. No further episodes of hematemesis or melena. Abdominal pain is currently controlled with alternating morphine and Toradol. No signs of pancreatitis on CT of lipase Medications: Reviewed: Yes Vitals/I&O/Wt Last Vital Signs Temp 98.6 F 01/31/20 12:03 Pulse 53 L 01/31/20 12:03 Resp 18 01/31/20 12:03 BP 158/76 01/31/20 12:03 Pulse Ox 98 01/31/20 12:03 01/30/20 01/31/20 01/31/20 22:59 06:59 14:59 Intake Total 0 / 0 Output Total 800 / 800 Balance 0 / 0 -800 / -800 Weight last 48 hrs Weight 90.718 kg Physical Exam Narrative: EXAM NARRATIVE: GEN: Awake, alert and oriented, no acute distress CVS: S1S2 N RS: CTA B/L Abd: Soft, nt/nd , bs+ FINANCIAL LEGAL ASSISTANT: no focal neuro deficits Data : 01/31/20 03:00 01/31/20 03:00 Micro: Microbiology 01/30/20 17:48 Blood Culture - Preliminary Blood SPECIMEN COLLECTED A&P Assessment and plan (1) Upper GI bleed: Status: Acute (2) Coffee ground emesis: Status: Acute (3) Black tarry stools: Status: Acute Additional A&P Information Coffee-ground emesis with black tarry stool Intractable nausea and vomiting for last 72 hours with subsequent conversion to coffee-ground emesis Suspect Mellisa-Whiting tear vs gastric or duodenal ulceration given epigastric pain Continue tonics 40 IV twice daily, n.p.o., D5 half-normal saline resuscitation, Likely UGIE this afternoon Essential hypertension: Is not on any antihypertensive currently normotensive, monitor blood pressure for now Full code N.p.o. DVT prophylaxis SCDs, Attestations Medical Necessity Statement*: UGIE planned to established source of hematemesis Coding Level of Care Code Acute Award Clerk for [facility] Fwd Diagnoses Upper GI bleed K92.2 Coffee ground emesis K92.0 Black tarry stools K92.1
[2020-02-01] VITALS: BP 140/82; PULSE 61; RESP 18; TEMP 36.6; O2SAT 96
[2020-02-01 03:53] VITALS: BP 124/67; PULSE 59; RESP 16; TEMP 36.5; O2SAT 95
[2020-02-01 07:53] VITALS: BP 148/88; PULSE 65; RESP 18; TEMP 36.5; O2SAT 95
--- NOTE | 2020-02-01 08:18 | ANE.PACU2 ---
Inpatient post-anesthesia follow up: Airway intact: Yes Vital signs: Temperature 97.7 F Pulse Rate [Monito r] 93 Pulse Rate 65 Respiratory Rate 18 Blood Pressure 148/88 Pulse Oximetry 95 Oxygen Delivery Me thod Room Air Oxygen Flow Rate Fraction of Inspir ed Oxygen Hydration adequate: Yes Nausea and vomiting: No Pain level: 1 Mental status: Baseline
--- NOTE | 2020-02-01 09:38 | PM.PN ---
Subjective Subjective: Interval history: The patient says he was feeling well until this morning when I got some stomach pain back. He is hungry and would like some food, however. Vitals/I&O/Wt Last Vital Signs Temp 97.7 F 02/01/20 07:53 Pulse 65 02/01/20 07:53 Resp 18 02/01/20 07:53 BP 148/88 02/01/20 07:53 Pulse Ox 95 02/01/20 07:53 01/31/20 02/01/20 02/01/20 22:59 06:59 14:59 Output Total 600 / 1400 800 / 800 Balance -600 / -1400 -800 / -800 Weight last 48 hrs Weight 200 lb Physical Exam Narrative: EXAM NARRATIVE: Very mild epigastric tenderness. Data : 01/31/20 03:00 01/31/20 03:00 Micro: Microbiology 01/30/20 17:48 Blood Culture - Preliminary Blood NEGATIVE TO DATE A&P Assessment and plan (1) Hematemesis: EGD performed yesterday showed some mild gastritis and moderate duodenitis. CLOtest is negative. The patient appears stable. I would be okay with the patient being discharged on a proton pump inhibitor daily for 8 weeks. I will allow him a soft diet for now. Status: Acute (2) Black tarry stools: Status: Acute (3) Recurrent umbilical hernia: This is recurrent; it sounds like it is asymptomatic for the most part. Status: Acute (4) Epigastric pain: The patient does have some tenderness on exam, but is not always reproducible. There are no imaging or laboratory studies that would indicate the patient has pancreatitis at this time. Status: Acute Attestations Medical Necessity Statement*: See admitting service's notation. Coding Level of Care Code Acute Geriatric Physician for [facility] Fwd Diagnoses Hematemesis K92.0 Black tarry stools K92.1 Recurrent umbilical hernia K42.9 Epigastric pain R10.13
--- NOTE | 2020-02-01 11:22 | PM.DCS ---
Discharge Providers Date of Admission: 01/30/20 21:26 Date of Discharge: February 01, 2020 Attending Provider at Admission: Akbar Darby MD Attending Provider at Discharge: Suzanne Ansari MD Primary Care Provider: Alice Long Diagnoses at Discharge Discharge Diagnosis (1) Hematemesis: Status: Acute (2) Black tarry stools: Status: Acute (3) Recurrent umbilical hernia: Status: Acute (4) Epigastric pain: Status: Acute Reason for Visit Reason for Visit: VOMITING BLOOD Hospital Course Discharge Summary: Geo Parson is a 59 year old male who carries history of recurrent pancreatitis secondary to alcohol and nicotine abuse) to the ER in custody on January 30, 2020. He had also complained of intractable nausea vomiting and coffee-ground emesis at the time. Subsequently underwent upper GI endoscopy given the bleeding. Findings showed mild patchy gastritis with superficial linear erosions and moderate diffuse inflammation in the duodenal bulb. There was no obvious source of bleeding. CLOtest was negative. He thereafter tolerated clear liquid diet and advancement well. Abdominal pain and nausea vomiting were resolved at the time of discharge. No further episodes of hematemesis or melena were noted during the hospital stay. He is being discharged on Protonix orally twice a day for the next 8 weeks was advised to follow-up with Dr. Kelly at the end of this time. He had previously presented to the ER on January 25 with chief complaints of chest pain. He was given a GI cocktail at the time, lipase was normal and he was discharged. Serial troponins and 2 EKGs were unremarkable. He had been placed on aspirin 325 at that time which has been discontinued today in view of gastritis. He had no complaints of chest pain dyspnea or palpitations during the course of this current admission. Physical Exam Narrative: EXAM NARRATIVE: GEN: Awake, alert and oriented, no acute distress CVS: S1S2 N RS: CTA B/L Abd: Soft, nt/nd , bs+ C SOFTWARE DEVELOPER: no focal neuro deficits Discharge Data Data Completed and Pending: Completed Studies During Hospitalization Category Date Time Status CT abdomen pelvis w con* [id number] Urge nt Cat Scan 01/30/20 18:54 Completed Pending at discharge Category Date Time Status Blood Culture Sta t Lab 01/30/20 17:48 Results H. Pylori / JANIE T est Routine Lab 01/31/20 12:54 Ordered Vitals: Last Vital Signs Temp 97.7 F 02/01/20 07:53 Pulse 65 02/01/20 07:53 Resp 18 02/01/20 07:53 BP 148/88 02/01/20 07:53 Pulse Ox 95 02/01/20 07:53 Discharge Plan Discharge Patient Disposition: Home Condition: Stable Prescriptions: New Protonix 40 mg tablet,delayed release (DR/EC) 40 mg PO BID 60 Days Qty: 120 RF: 0 Discontinued omeprazole 40 mg capsule,delayed release(DR/EC) 40 mg PO DAILY 28 Days Qty: 30 RF: 0 aspirin [Pepper Aspirin] 325 mg tablet 325 mg PO DAILY Qty: 30 RF: 0 Discharge Orders: Discharge Order (Routine); Ordered 02/01/20 Ordered By: Suzanne Ansari Referrals: Jake Kelly MD [Physician] - 2 months Discharge Diet: GI Soft Discharge Activity: Resume usual activity Patient Instructions: Pantoprazole (By mouth), Umbilical Hernia (DC) Discharge Date/Time: 02/01/20 11:45 Discharge Attestations Time Spent in Discharge Care*: greater than 30 min Quality Metrics Clinical Quality Measures During this hospital stay, did patient experience: None Coding Level of Care Code Acute [place] Point Pumping Supervisor for g Fwd Diagnoses Hematemesis K92.0 Black tarry stools K92.1 Recurrent umbilical hernia K42.9 Epigastric pain R10.13
[2020-02-01 11:32] VITALS: BP 150/89; PULSE 55; RESP 18; TEMP 36.5; O2SAT 95
--- NOTE | 2020-02-01 11:32 | PC.RESP ---
Smoking Cessation information sent to patient.
[2020-02-01 11:46] VITALS: BP 150/89; PULSE 55; RESP 18; TEMP 36.5; O2SAT 95
[2020-02-01 11:50] LABS: Glucose Point of Care 96 mg/dL (70-110)
--- NOTE | 2020-02-01 12:04 | PC.NURSE ---
IV DC'd, cath intact, bleeding controlled with 2x2's and coban. DC intructions given to patient voiced full understanding. to main entrance via wheelchair with zero difficulties
[2020-02-01 12:53] LABS: H. Pylori / CLO Test Negative
== END 2020-02-01 11:45 | disposition home or self-care (01) ==
LOC: ER 22:00 → MEDSURG 22:18
PROVIDERS: Physician Assistant; Surgery; Admitting Provider Internal Medicine; Family Provider Family Medicine; PCP Family Medicine; Visit Provider Student in an Organized Health Care Education/Training Program
PROC: 0DJ08ZZ Inspection of Upper Intestinal Tract, Via Natural or Artificial Opening Endoscopic (ICD-10-PCS; CPT 43235; principal; 2020-01-31 10:15)
DX: K92.2 Gastrointestinal hemorrhage, unspecified (principal); K92.1 Melena; K92.0 Hematemesis; F17.210 Nicotine dependence, cigarettes, uncomplicated; Z79.82 Long term (current) use of aspirin; F15.11 Other stimulant abuse, in remission; K86.1 Other chronic pancreatitis; K42.9 Umbilical hernia without obstruction or gangrene; I10 Essential (primary) hypertension; I25.10 Atherosclerotic heart disease of native coronary artery without angina pectoris; I25.2 Old myocardial infarction; I69.892 Facial weakness following other cerebrovascular disease
CPT/HCPCS: 12345; 36415; 36416; 43239; 74177; 80053; 81001; 82962; 83690; 85014; 85018; 85025; 87040; 87077; 96361; 96374; 96375; 96376; 99283; 99285; C9113; G0378; J1170; J1885; J2270; J2405; J2704; J7030; J7799; Q9967